=== PATIENT | female | born 1955 | race Caucasian/White ===

== ENCOUNTER → 2021-03-17 | Outpatient (CLI) | payer MEDICARE, OTHER ==
[~2021-03-17] MED LIST: IBUP80TA PO; PERC5TAB12 PO
--- NOTE | 2021-03-17 16:16 | REP ---
INDICATION: CONTUSION COMPARISON: None. TECHNIQUE: Frontal view of the chest with multiple views of the left hemithorax. FINDINGS: Nondisplaced posterolateral left 5th and 6th rib fractures are identified and possible very subtle nondisplaced lateral 7th rib fracture. Frontal view of the chest demonstrates normal mediastinum and cardiac silhouette. Lung dey are well aerated and clear without consolidation/contusion, effusion, or pneumothorax. IMPRESSION: 1. Nondisplaced left 5th, 6th, and possible 7th rib fractures. <Electronically signed by Rashaad Avalos > 03/17/21 [id number]
== END ==
LOC: M WUC 15:42
PROVIDERS: ATTEND Physician Assistant
DX: S22.42XA Multiple fractures of ribs, left side, initial encounter for closed fracture (principal); X58.XXXA Exposure to other specified factors, initial encounter; Y92.9 Unspecified place or not applicable

== ENCOUNTER 2021-03-18 10:24 | Emergency (ER) | payer MEDICARE, OTHER ==
[~2021-03-18] VITALS: Ht 167.6 cm; Wt 71.3 kg
[2021-03-18 10:24] VITALS: BP 193/100
[2021-03-18] MEDS ORDERED: IBUP80TA PO (10:32)
[2021-03-18] MEDS ORDERED: PERCOCET 5MG/325MG TAB PO ONE (11:50)
--- NOTE | 2021-03-18 12:04 | REP ---
INDICATION: broken ribs/inc pain/sob COMPARISON: None. TECHNIQUE: PA and lateral. FINDINGS: The mediastinum and cardiac silhouette are normal. The lung dey are clear and without acute consolidation, effusion, or pneumothorax. Previously identified left-sided rib fractures are incompletely visible on current x-ray. IMPRESSION: No acute cardiopulmonary process. Left rib fractures poorly identified on current x-ray. No associated contusion, effusion, or pneumothorax. <Electronically signed by Rashaad Avalos > 03/18/21 1202
[2021-03-18] MEDS ORDERED: PERC5TAB12 PO (13:32)
== END 2021-03-18 13:52 | disposition home or self-care (01) ==
LOC: M ED 10:24
DX: S22.42XA Multiple fractures of ribs, left side, initial encounter for closed fracture (principal); V93.39XA Fall on board unspecified watercraft, initial encounter; Y92.9 Unspecified place or not applicable; Y93.9 Activity, unspecified; Y99.9 Unspecified external cause status; R06.02 Shortness of breath; Z88.0 Allergy status to penicillin; Z88.1 Allergy status to other antibiotic agents